=== PATIENT | male | born 1960 | race Caucasian/White ===

== ENCOUNTER 2024-01-04 10:32 | Emergency (ER) | payer OTHER, SELFPAY ==
[2024-01-04] MEDS ORDERED: LIDOCAINE HCL JELLY 2% 6 ML SYRINGE TOP ONE (10:41)
[2024-01-04] MEDS ORDERED: OXYCODONE *CR* 10 MG TAB PO ONE (10:41)
--- NOTE | 2024-01-04 10:57 | RAD REPORT ---
EXAM DESCRIPTION: RAD - Foot Left 3 View - 01/04/2024 10:46 am CLINICAL HISTORY: L 2nd toe injury COMPARISON: No comparisons FINDINGS: Soft tissue swelling affects the second toe. Transverse fracture is seen involving the pro ximal phalanx of the second toe with mild comminution. Small plantar calcaneal spur.
--- NOTE | 2024-01-04 11:12 | EDPHYS ---
Physician Documentation [facility] Name: Kat Gruber Age: 63 yrs Sex: Male : 1960 Arrival Date: 01/04/2024 Time: 10:32 Bed 3 Private MD: ED Physician Tushar Fisher HPI: 01/03 10:37 This 63 yrs old Male presents to ER via Wheelchair with complaints of Foot ec2 Injury. 10:37 Patient arrives today for evaluation of the left foot injury. States that he was riding ec2 his mower subsequently his left foot got trapped between the mower and the fencing. Patient complaining of pain at the second toe. The blade did not run over the toes. Patient up-to-date on tetanus with most recently in 2020.. Historical: - Allergies: 10:35 PENICILLINS; ll1 - PMHx: 10:35 Hypertensive disorder; Hypercholesterolemia; pre diabetes; ll1 - PSHx: 10:35 hernia repair; ll1 - Immunization history:: Last tetanus immunization: up to date < 5 years ago. - Infectious Disease History:: Denies. - Social history:: Smoking status: Patient/guardian denies using tobacco. ROS: 10:37 Constitutional: as per hpi ec2 Exam: 10:37 Constitutional: GEN: NAD Head: atraumatic Eyes: EOMI Ears: External ears are ec2 normal. CV: regular rate LUNGS: no respiratory distress ABD: non-distended SKIN: no evidence of rashes MSK: Left second toe with injury noted to the distal phalanx, base of the toe also with subcu tissue identified. NEURO: moves all extremities equally Vital Signs: 10:36 BP 153 / 116; Pulse 70; Resp 18; Temp 97.1; Pulse Ox 98% ; Weight 113.4 kg; Height 5 ll1 ft. 8 in. ; Pain 8/10; 11:00 BP 177 / 102; Pulse 70; Resp 17; ll1 11:44 BP 172 / 99; Pulse 70; Resp 17; Pulse Ox 98% on R/A; ll1 12:12 BP 131 / 90; Pulse 71; Resp 17; Pulse Ox 98% ; Pain 6/10; ll1 10:36 Body Mass Index 38.01 (113.40 kg, 172.72 cm) ll1 10:36 Pain Scale: Adult ll1 12:12 Pain Scale: Adult ll1 MDM: 10:37 Patient medically screened. ec2 10:37 Data reviewed: vital signs. ED course: Patient arrives today for evaluation of a left ec2 foot injury. Examination remarkable for left foot findings as above. Patient up-to-date on tetanus status so we will forego tetanus update. Will obtain radiograph to evaluate for underlying bony fracture, will apply let and clean the wound as well. . 11:10 ED course: Foot x-ray independently reviewed and interpreted by me, shows second toe ec2 with distal phalanx fracture, consistent with the patient's open fracture. Will attempt to transfer patient for possible cleanout versus amputation. Will give the patient Ancef as well.. 11:23 ED course: Discussed case with Isabella Connors who accepts the patient, will do ED to [facility] ED transfer. . 01/03 11:09 Order name: CBC with Diff; Complete Time: 11:52 2 01/03 11:09 Order name: BMP; Complete Time: 11:52 2 01/03 10:36 Order name: Foot Left 3 View XRAY; Complete Time: 11:02 ec2 01/03 10:37 Order name: Wound Care; Complete Time: 12:03 2 01/03 11:09 Order name: IV Start; Complete Time: 11:31 2 01/03 11:24 Order name: Post-op shoe; Complete Time: 12:03 ec2 Administered Medications: 10:47 Drug: LET 3 ml - (Lidocaine Topical (4%) 1 application, Tetracaine Topical (0.5 %) 1 ll1 application, EPINEPHrine Intranasal (0.1 %) 1 application, Methylcellulose Ophthalmic 1 application) Topical once {Note: L foot 2nd digit.} Route: Topical; Site: wound; 11:43 Follow up: Response: No adverse reaction; Pain is decreased; RASS: Alert and Calm (0) ll1 10:47 Drug: oxyCODONE PO 10 mg PO once Route: PO; ll1 11:44 Follow up: Response: No adverse reaction; Pain is decreased; RASS: Alert and Calm (0) ll1 11:43 Drug: ceFAZolin IVPB 1 grams IVPB once Route: IVPB; Site: right forearm; ll1 12:15 Follow up: Response: No adverse reaction; IV Status: Completed infusion; IV Intake: ll1 100ml Disposition Summary: 01/04/24 11:11 Transfer Ordered Notes: Transfer Location: [facility] ec2 Reason: Higher level of care ec2 Condition: Stable ec2 Problem: new ec2 Symptoms: are unchanged ec2 Accepting Physician: transferring tae(01/04/24 12:16) ll1 Diagnosis - Open Fracture ec2 - Displaced fracture of middle phalanx of left lesser toe(s), initial encounter for ec2 open fracture Forms: - Medication Reconciliation Form ec2 - SBAR form ec2 Signatures: Dispatcher [employer] Mehul Anna RN RN ll1 Tushar Fisher MD MD ec2 Corrections: (The following items were deleted from the chart) 12:16 11:11 transferring doc ec2 ll1
--- NOTE | 2024-01-04 11:12 | ER ---
Nurse's Notes [facility] Name: Kat Gruber Age: 63 yrs Sex: Male : 1960 Arrival Date: 01/04/2024 Time: 10:32 Bed 3 Private MD: Diagnosis: Open Fracture;Displaced fracture of middle phalanx of left lesser toe(s), initial encounter for open fracture Presentation: 01/03 10:36 Chief complaint: Patient states: Caught L foot on fence and tore his toes. Bleeding ll1 controlled. Coronavirus screen: Client denies travel out of the [place] in the last 14 days. At this time, the client does not indicate any symptoms associated with coronavirus-19. Ebola Screen: Patient denies travel to an Ebola-affected area in the 21 days before illness onset. Initial Sepsis Screen: Does the patient meet any 2 criteria? No. Patient's initial sepsis screen is negative. Does the patient have a suspected source of infection? No. Patient's initial sepsis screen is negative. Risk Assessment: Do you want to hurt yourself or someone else? Patient reports no desire to harm self or others. Onset of symptoms was January 04, 2024. 10:36 Method Of Arrival: Wheelchair ll1 10:36 Acuity: ENEIDA 2 ll1 Triage Assessment: 10:40 Injury Description: Deformity Laceration. ll1 Historical: - Allergies: 10:35 PENICILLINS; ll1 - PMHx: 10:35 Hypertensive disorder; Hypercholesterolemia; pre diabetes; ll1 - PSHx: 10:35 hernia repair; ll1 - Immunization history:: Last tetanus immunization: up to date < 5 years ago. - Infectious Disease History:: Denies. - Social history:: Smoking status: Patient/guardian denies using tobacco. Screenin:12 Abuse screen: Denies threats or abuse. ll1 12:15 [facility] ED Fall Risk Assessment (Adult) History of falling in the last 3 months, ll1 including since admission No falls in past 3 months (0 pts) Confusion or Disorientation No (0 pts) Intoxicated or Sedated No (0 pts) Impaired Gait Yes (1 pt) Mobility Assist Device Used Yes (1 pt) Altered Elimination No (0 pt) Score/Fall Risk Level 0 - 2 = Low Risk Maintained a safe environment, Hourly rounding (assess needs \T\ fall precautionary measures) done. 12:15 Nutritional screening: No deficits noted. Tuberculosis screening: No symptoms or risk ll1 factors identified. Assessment: 10:40 General: Appears uncomfortable, Behavior is calm, cooperative, appropriate for age. ll1 Pain: Complains of pain in left foot Quality of pain is described as aching, throbbing. Derm: laceration L foot 2nd digit. Musculoskeletal: Circulation, motion, and sensation intact. Capillary refill < 3 seconds, 2nd digit dusky, but has distal sensation Reports pain in left foot. 11:45 Reassessment: No changes from previously documented assessment. Patient and/or family ll1 updated on plan of care and expected duration. Pain level reassessed. Patient is alert, oriented x 3, equal unlabored respirations, skin warm/dry/pink. 11:48 Reassessment: No changes from previously documented assessment. Patient and/or family ll1 updated on plan of care and expected duration. Pain level reassessed. Patient is alert, oriented x 3, equal unlabored respirations, skin warm/dry/pink. 12:16 Reassessment: No changes from previously documented assessment. Patient and/or family ll1 updated on plan of care and expected duration. Pain level reassessed. Patient is alert, oriented x 3, equal unlabored respirations, skin warm/dry/pink. Vital Signs: 10:36 BP 153 / 116; Pulse 70; Resp 18; Temp 97.1; Pulse Ox 98% ; Weight 113.4 kg; Height 5 ll1 ft. 8 in. ; Pain 8/10; 11:00 BP 177 / 102; Pulse 70; Resp 17; ll1 11:44 BP 172 / 99; Pulse 70; Resp 17; Pulse Ox 98% on R/A; ll1 12:12 BP 131 / 90; Pulse 71; Resp 17; Pulse Ox 98% ; Pain 6/10; ll1 10:36 Body Mass Index 38.01 (113.40 kg, 172.72 cm) ll1 10:36 Pain Scale: Adult ll1 12:12 Pain Scale: Adult ll1 ED Course: 10:33 Patient arrived in ED. ts1 10:34 Arm band placed on Patient placed in an exam room, on a stretcher. ll1 10:36 Tushar Fisher MD is Attending Physician. ec2 10:37 Triage completed. ll1 10:48 Foot Left 3 View XRAY In Process Unspecified. EDMS 10:48 Mehul Diaz RN is Primary Nurse. ll1 11:24 \T\[id number] initiated a transfer with Kimberli from the [facility]/ \T\[id number] eb administrative approval given by Ana Lilia Rowe RN/ patient has been accepted to [facility] ED/ Dr. Madhu Chapman has accepted the patient in transfer/ report to be called to [phone]. 11:28 Missed attempt(s): 22 gauge in right antecubital area. Bleeding controlled, band aid ll1 applied, catheter tip intact. 11:30 Initial lab(s) drawn, by la, sent to lab. Inserted saline lock: 20 gauge in right ll1 wrist, using aseptic technique. Blood collected. 12:14 Patient has correct armband on for positive identification. Bed in low position. ll1 Provided Education on: need for transfer. 12:14 No provider procedures requiring assistance completed. Patient transferred, IV remains ll1 in place. Administered Medications: 10:47 Drug: LET 3 ml - (Lidocaine Topical (4%) 1 application, Tetracaine Topical (0.5 %) 1 ll1 application, EPINEPHrine Intranasal (0.1 %) 1 application, Methylcellulose Ophthalmic 1 application) Topical once {Note: L foot 2nd digit.} Route: Topical; Site: wound; 11:43 Follow up: Response: No adverse reaction; Pain is decreased; RASS: Alert and Calm (0) ll1 10:47 Drug: oxyCODONE PO 10 mg PO once Route: PO; ll1 11:44 Follow up: Response: No adverse reaction; Pain is decreased; RASS: Alert and Calm (0) ll1 11:43 Drug: ceFAZolin IVPB 1 grams IVPB once Route: IVPB; Site: right forearm; ll1 12:15 Follow up: Response: No adverse reaction; IV Status: Completed infusion; IV Intake: ll1 100ml Medication: 12:15 VIS not applicable for this client. ll1 Intake: 12:15 IV: 100ml; Total: 100ml. ll1 Outcome: 11:11 ER care complete, transfer ordered by . ec2 12:14 Transferred by ground EMS to [facility], Transfer form completed. Note: ll1 Report called to Chetna Aparicio RN in ED 12:14 Condition: stable 12:14 Instructed on the need for transfer, 12:16 Patient left the ED. ll1 Signatures: Dispatcher [employer] Yani Flowers Lynsay, RN RN ll1 Molly Carmona PAS PAS ts1 Tushar Fisher MD MD ec2 Corrections: (The following items were deleted from the chart) 12:15 12:14 Transferred by ground EMS to [facility], Transfer form completed. ll1 ll1
[2024-01-04] MEDS ORDERED: CEFAZOLIN SODIUM 1 GM/VIAL ONE (11:32)
[2024-01-04] MEDS ORDERED: NA CHLORIDE 0.9% 100 ML ONE (11:33)
[2024-01-04 11:38] LABS: Absolute Basophils 0.1 K/uL (0-0.5); Absolute Eosinophils 0.1 K/uL (0-0.5); Absolute Monocytes 0.6 K/uL (0.1-1.3); Absolute Neutrophil 5.8 K/uL (1.8-8.0); Basophils % 0.8 % (0-1.3); Eosinophils % 1.9 % (0-4.4); Hematocrit 49.1 % (39.6-49.0); Hemoglobin 16.4 g/dL (13.6-17.9); Lymphocytes % 13.5 % (15.3-44.8); MCH 30.6 pg (27.0-35.0); MCHC 33.3 g/dL (32.0-36.0); MCV 91.7 fL (80-100); MPV 8.7 fL (7.6-11.3); Monocytes % 7.9 % (3.3-12.3); Neutrophils % 75.9 % (41.7-73.7); Platelets 209 thou/uL (152-406); RBC Red Blood Cell Count 5.35 M/uL (4.33-5.43); Red Cell Distribution Width 13.9 % (12.1-15.2)
[2024-01-04 11:51] LABS: Anion Gap 9.9 mEq/L (5.0-15.0); Potassium 3.9 mEq/L (3.5-5.1)
[2024-01-04 12:36] VITALS: BP 131/90; TEMP 97.1; O2SAT 98
== END 2024-01-04 12:16 | disposition short-term general hospital (02) ==
LOC: ER 10:32
DX: S92.522B Displaced fracture of middle phalanx of left lesser toe(s), initial encounter for open fracture (principal); Z88.0 Allergy status to penicillin
CPT/HCPCS: 96365; 85025; 80048; 36415; 73630; 99285; J0690